=== PATIENT | female | born 1950 | race Caucasian/White ===

== ENCOUNTER → 2016-07-06 | Outpatient (CLI) | payer MEDICARE, OTHER ==
[~2016-07-06] VITALS: Ht 152.4 cm; Wt 71.2 kg
[~2016-07-06] MED LIST: BUPIVACAINE 0.5% 50 ML VIAL. INJ ONE; GABA600T2 PO; HYDR25TA9 PO; IOHEXOL 300 MG/ML 50 ML VIAL. IJ ONE; META800T PO; METF-620 PO; METO100T11 PO; NITR0.4T SL; OMEP20CA9 PO; PROAIR HFA8.5 GM INH; SIMV40TA3 PO; SUCR1TAB PO; methylPREDNISolone ACETATE 80 MG/ML VIAL. IM ONE
[2016-07-06 10:57] VITALS: BP 113/72
--- NOTE | 2016-07-06 11:44 | RAD ---
Indication left hip pain. Request injection. Injection of the left hip for purposes of pain management was discussed with the patient. Risks of infection and bleeding were outlined. The patient understood the risks associated with the procedure and wished to proceed. The femoral artery was palpated and marked. An appropriate approach into the joint was anticipated under fluoroscopic guidance. The left leg was slightly internally rotated and during the approach the femoral artery was anticipated to be well away from the anticipated needle approach. The skin was prepped and draped in the routine fashion. Local anesthesia was accomplished with 1% lidocaine. A 22-gauge needle was utilized. The joint was approached. A small amount contrast was injected. Several attempts were made to try to gain access into the joint but access into the joint was never certain. 3 cc of Marcaine and 80 mg of Depo-Medrol was injected. The patient tolerated the procedure well without apparent complication. A single fluoroscopic image was obtained. Fluoroscopy time associated with the exam was 4.4 minutes. IMPRESSION: Injection about the left hip for purposes of pain management
== END | disposition home or self-care (01) ==
LOC: RAD 09:59
PROVIDERS: ATTEND Nurse Practitioner Gerontology
DX: M16.12 Unilateral primary osteoarthritis, left hip (principal)
CPT/HCPCS: 20610; 77002; J1040; J3490; Q9967